=== PATIENT | female | born 1965 | race Hispanic/Latino ===

== ENCOUNTER 2017-09-15 06:10 | Day surgery (SDC) | payer BC ==
[~2017-09-15 06:10] MED LIST: ANCEF/STERILE WATER 2 GM/20 ML 2 GM/20 ML SYRINGE IV NR; NACL 0.9% 1000 ML 1,000 ML IV SCH; VERSED IV NR
[2017-09-15 07:26] LABS: Basophils # (Auto) 0.1 K/mm3 (0.0-0.1); Basophils % (Auto) 0.7 % (0.0-1.8); Eosinophils # (Auto) 0.2 K/mm3 (0.0-0.4); Eosinophils % (Auto) 2.7 % (0.0-4.3); Hematocrit 31.4 % (30.3-42.9); Lymphocytes # (Auto) 2.2 K/mm3 (1.2-5.4); Lymphocytes % (Auto) 30.1 % (13.4-35.0); Mean Corpuscular HGB Conc 32 % (30-34); Mean Corpuscular Hemoglobin 29 pg (28-32); Mean Corpuscular Volume 90 fl (79-97); Monocytes # (Auto) 0.8 K/mm3 (0.0-0.8); Monocytes % (Auto) 11.4 % (0.0-7.3); Platelet Count 238 K/mm3 (140-440); Red Cell Distribution Width 17.6 % (13.2-15.2)
--- NOTE | 2017-09-15 07:33 | Anesthesia Day of Surgery ---
Anesthesia Day of Surgery - Day of Surgery Patient Examined: Yes Patient H&P Reviewed: Yes Patient is NPO: Yes Beta Blockers: Yes
--- NOTE | 2017-09-15 07:33 | Anesthesia Consultation ---
Anesthesia Consult and Med Hx Date of service: 09/15/17 - Airway Anesthetic Teeth Evaluation: Poor ROM Head & Neck: Inadequate (small mouth opening) Mental/Hyoid Distance: Adequate Mallampati Class: Class I Intubation Access Assessment: Probably Good - Pulmonary Exam CTA: Yes - Cardiac Exam Cardiac Exam: No Murmur - Pre-Operative Health Status ASA Pre-Surgery Classification: ASA2 Proposed Anesthetic Plan: General - Pulmonary Hx Smoking: Yes (QUIT 1988) Hx Asthma: Yes (INHALER PRN) Hx Sleep Apnea: No (TERE PRE SCREEN HIGH RISK) - Cardiovascular System Hx Hypertension: Yes - Endocrine Hx Renal Disease: Yes Hx End Stage Renal Disease: Yes Hx Hypothyroidism: Yes - Hematic Hx Anemia: Yes - Other Systems Hx Alcohol Use: Yes (MODERATELY) Hx Cancer: No
[2017-09-15] MEDS ORDERED: ZOFRAN IV PRN (07:36)
[2017-09-15] MEDS ORDERED: NARCAN 0.4 MG/1 ML IV PRN (07:36)
[2017-09-15] MEDS ORDERED: DEMEROL IV PRN (07:36)
[2017-09-15] MEDS ORDERED: DILAUDID IV PRN ×2 (07:36)
[2017-09-15 07:38] LABS: Calcium 7.4 mg/dL (8.4-10.2)
[2017-09-15] MEDS ORDERED: XYLOCAINE MPF 2% ONE (07:44)
[2017-09-15] MEDS ORDERED: DIPRIVAN 10 MG/ML IV ONE (07:44)
[2017-09-15] MEDS ORDERED: SUBLIMAZE ONE ×2 (07:44→08:58)
[2017-09-15] MEDS ORDERED: ZOFRAN ONE (07:44)
[2017-09-15] MEDS ORDERED: NACL 0.9% 500 ML 500 ML ONE (07:47)
[2017-09-15] MEDS ORDERED: HEPARIN 10,000 UNITS/10 ML ONE (07:47)
[2017-09-15] MEDS ORDERED: MARCAINE 0.5% 30 ML INFILTRATI ONE (08:06)
[2017-09-15] MEDS ORDERED: VERSED ONE (08:23)
[2017-09-15] MEDS ORDERED: REGLAN ONE (08:26)
[2017-09-15] MEDS ORDERED: NEO SYNEPHRINE/NS Syringe(OR USE) IV ONE (08:49)
[2017-09-15] MEDS ORDERED: ePHEDrine 50 MG/5 ML-0.9% NACL IV ONE ×3 (08:49→10:37)
[2017-09-15] MEDS ORDERED: NACL 0.9% 100 ML ONE (09:20)
[2017-09-15] MEDS ORDERED: NACL 0.9% IR ONE (09:21)
[2017-09-15] MEDS ORDERED: HEPARIN 10,000 UNITS/10 ML 2,000 UNIT in NACL 0.9% 500 ML 500 ML IR ONE (09:21)
[2017-09-15] MEDS ORDERED: MARCAINE 0.5% INFILTRATI ONE (09:21)
[2017-09-15] MEDS ORDERED: NACL 0.9% 1000 ML 1,000 ML ONE (10:41)
[2017-09-15] MEDS ORDERED: NACL P/F VIAL (10 ML) 10 ML ONE (11:17)
[2017-09-15] MEDS ORDERED: RIFADIN ONE (11:17)
[2017-09-15] MEDS ORDERED: RIFADIN 600 MG in NACL 0.9% 50 ML IR ONE (11:28)
--- NOTE | 2017-09-15 12:16 | Short Stay Summary ---
Short Stay Documentation Date of service: 09/15/17 Narrative H&P: See H&P - History H&P: obtained from office - Allergies and Medications Current Medications: Allergies codeine Allergy (Verified 09/11/17 14:49) Vomiting PT STATES HOT, SWEATY, AND DIZZY Home Medications Medication Instructions Recorded Confirmed Last Taken Type ALBUTEROL Inhaler [ProAir HFA 2 puff IH PRN PRN 09/11/17 09/15/17 2 Months Ago History Inhaler] ~07/16/17 Acetaminophen/Diphenhydramine 1 each PO DAILY 09/11/17 09/15/17 09/13/17 21:00 History [Tylenol Pm Ex-Strength Caplet] Allopurinol 100 mg PO DAILY 09/11/17 09/15/17 09/14/17 09:00 History Bisoprolol [Zebeta] 10 mg PO BID 09/11/17 09/15/17 09/15/17 04:30 History Duloxetine HCl [DULoxetine] 60 mg PO DAILY 09/11/17 09/15/17 09/14/17 21:00 History Hydralazine HCl 50 mg PO BID 09/11/17 09/15/17 09/15/17 04:30 History Levothyroxine Sodium 225 mcg PO DAILY 09/11/17 09/15/17 09/14/17 09:00 History amLODIPine [Norvasc] 10 mg PO DAILY 09/11/17 09/15/17 09/15/17 04:30 History Active Medications Hydromorphone HCl (Dilaudid) 0.5 mg IV Q10MIN PRN PRN Reason: Pain , Severe (7-10) Stop: 09/15/17 14:00 Hydromorphone HCl (Dilaudid) 0.25 mg IV Q10MIN PRN PRN Reason: Pain, Moderate (4-6) Stop: 09/15/17 15:00 Cefazolin Sodium (Ancef/Sterile Water 2 Gm/20 Ml) 2 gm in 20 mls @ 80 mls/hr IV PREOP NR; Protocol Stop: 09/15/17 23:59 Sodium Chloride (Nacl 0.9% 1000 Ml) 1,000 mls @ 42 mls/hr IV DIRECT LASHELL Last Admin: 09/15/17 07:23 Dose: 42 mls/hr Sodium Chloride (Nacl 0.9% 1000 Ml) 1,000 mls @ 42 mls/hr IV DIRECT LASHELL Meperidine HCl (Demerol) 25 mg IV ONCE PRN PRN Reason: Shivering Stop: 09/15/17 15:00 Midazolam HCl (Versed) 2 mg IV PREOP NR Stop: 09/15/17 23:59 Naloxone HCl (Narcan 0.4 Mg/1 Ml) 0.1 mg IV Q2MIN PRN PRN Reason: Res Rate </= 8 or 02 SAT < 92% Stop: 09/15/17 23:59 - Brief post op/procedure progress note Date of procedure: 09/15/17 Pre-op diagnosis: Chronic Renal Insufficiency Post-op diagnosis: same Procedure: Creation of Left Brachiocephalic Arteriovenous Fistula Anesthesia: DWAINE Surgeon: WEST OTERO Estimated blood loss: 50-100ml Pathology: none Condition: stable - Disposition Condition at discharge: Good Disposition: DC-01 TO HOME OR SELFCARE Short Stay Discharge Plan Activity: other (no heavy lifting with left arm) Wound: open to air, keep clean and dry, other (okay to wash the wound with soap and water but do not soak in water) Follow up with: WEST OTERO MD [Staff Physician] - 14 Days Prescriptions: HYDROcodone/APAP 7.5-325 [[place] 7.5/325] 1 each PO Q6HR PRN #40 tablet PRN Reason: Pain
--- NOTE | 2017-09-15 12:26 | Operative Report ---
Operative Report Operative Report: Date of procedure: 09/15/2017 Pre-operative diagnosis: Chronic Renal insufficiency Post-operative diagnosis: Same Procedure(s): 1. Creation of Left Brachial Artery to Cephalic Vein Arteriovenous Fistula Surgeon: Clarence Olivarez MD Neuro Urologist: None Anesthesia: Gen. endotracheal anesthesia EBL: 100 mL Counts: Correct Complications: None Condition: Stable Findings: The patient has small brachial artery. Palpable thrill at the completion of the case. Specimen: None Indications: The patient is a 51-year-old female with a history of chronic renal sufficiency who is not yet on hemodialysis however her renal function has decreased to the point where it is anticipated that she will require hemodialysis within the next several months. She had vein mapping that demonstrated she is adequate candidate for creation of an AV fistula. She was given the risk, benefits, and alternative procedures and consented to procedure. Description of Procedure: The patient was brought to the operating room and laid in supine position after general endotracheal anesthesia was administered the patient was prepped and draped in normal sterile fashion. After anesthetizing the skin a transverse incision was created just below the antecubital crease. Dissection was carried down to the the cephalic vein using sharp dissection. The vein was dissected out both proximally and distally and suture ligated and divided distally. I then ran a 3 Prashanth proximally in the vein, to ensure patency of the vein. Then flushed the vein with heparinized saline and flow was controlled with a bulldog clamp. I then dissected out the brachial artery through this incision circumferentially both proximal and distal and controlled the artery with vessel loops. I then placed the vessel loops on tension controlling the flow through the artery and created an arteriotomy using an 11 blade and Herrera scissors. I created an end to side anastomosis between the cephalic vein and brachial artery using a a combination of AnastClips and 6-0 Prolene's. Prior to completing the anastomosis I flushed the artery both proximally and distally and then advanced a 3 Prashanth proximally to break the spasm in the artery. I then completed the anastomosis and removed all vessel loops allowing flow into the fistula which had a marginal thrill. There appeared to be a stenosis near the anastomosis. I reclamped the artery as well as the vein and created a venotomy. I harvested a vein and splice it open and use it as a vein patch to perform a venoplasty of the area of stenosis. After releasing the clamps this did not resolve the area of stenosis so I decided to take down the venous anastomosis and used a small portion of a bovine graft to create the arterial anastomosis. I sewed the bovine graft to the arterial anastomosis using a 6-0 Prolene in a running fashion. I cut the graft using approximately 3 cm of the graft and beveled the end and then created into an anastomosis with the cephalic vein using 2 6-0 Prolene's in running fashion. Prior to completing the anastomosis I flushed the artery as well as the vein and then completed the anastomosis. After completing the anastomosis are released all clamps allowing flow into the fistula which had a palpable thrill. I achieved hemostasis with a combination of direct pressure and electrocautery. Once hemostasis was achieved I anesthetized the wound with 0.5% Marcaine. I then closed the wound in 2 layers and 3-0 Vicryl in a running fashion to close the deep dermal layer and 4-0 Monocryl in a running fashion in the subcuticular layer. I dressed the wound with Dermabond. The patient tolerated the procedure well, all sponge needle and instrument counts were correct. The patient was taken to recovery in stable condition.
[2017-09-15] MEDS ORDERED: TYLENOL PO ONE (13:00)
[2017-09-15] MEDS ORDERED: NACL 0.9% 500 ML 500 ML IV ONE (13:56)
[2017-09-15] MEDS ORDERED: NORCO 7.5/325 PO PRN (15:38)
[2017-09-15 20:49] VITALS: BP 90/42
== END 2017-09-15 16:40 | disposition home or self-care (01) ==
LOC: OR 06:10
PROVIDERS: ATTEND Surgery Vascular Surgery
DX: I12.0 Hypertensive chronic kidney disease with stage 5 chronic kidney disease or end stage renal disease (principal); N18.6 End stage renal disease; J45.909 Unspecified asthma, uncomplicated; E03.9 Hypothyroidism, unspecified; D64.9 Anemia, unspecified; Z79.899 Other long term (current) drug therapy; Z88.6 Allergy status to analgesic agent; Z90.49 Acquired absence of other specified parts of digestive tract; Z98.51 Tubal ligation status; Z83.3 Family history of diabetes mellitus; Z82.49 Family history of ischemic heart disease and other diseases of the circulatory system; Z87.891 Personal history of nicotine dependence
CPT/HCPCS: 36415; 36830; 80048; 81025; 85025; C1757; C1768; J0690; J1644; J2250; J2370; J2405; J2704; J2765; J3010; J3490; J7030; J7040